=== PATIENT | male | born 1955 | race Caucasian/White ===

== ENCOUNTER 2020-02-28 12:32 | Inpatient (IN) | payer MEDICARE ==
[2020-02-28] MEDS ORDERED: SODIUM CHLORIDE 0.9% 500 ML 500 ML IV STA (12:43)
[2020-02-28] MEDS ORDERED: DILTIAZEM DRIP BOLUS FROM BAG 1 MG SOLN IV ONE ×2 (13:02→14:01)
--- NOTE | 2020-02-28 13:12 | ED ---
General Adult HPI - General Chief complaint: Arrhythmia/Palpitations Stated complaint: Dizziness Time Seen by Provider: 02/28/20 12:42 Source: patient, RN notes reviewed, old records reviewed Mode of arrival: ambulatory Limitations: no limitations - History of Present Illness Initial comments: 65-year-old male presenting for evaluation of lightheadedness, palpitations. Patient is quite healthy, no history of hypertension, no history diabetes, he has had an outpatient calcium study performed and indicated that he had mild coronary artery disease by computed tomography scan. He states that this morning he woke with his symptoms, he's had symptoms for approximately 5 hours at the time my evaluation. Denies chest pain or dyspnea. No previous history of arrhythmia. Found to be in atrial fibrillation at the time of presentation. No lower extremity swelling. - Related Data Home Medications Medication Instructions Recorded Confirmed Aspirin EC [Ecotrin Low Dose] 162 mg PO DAILY 02/28/20 02/28/20 Esomeprazole Magnesium [NexIUM 20 mg PO DAILY 02/28/20 02/28/20 24Hr] Allergies Allergy/AdvReac Type Severity Reaction Status Date / Time Pork/Porcine Containing AdvReac MIGRAINES Verified 02/28/20 14:05 Products [Pork] Review of Systems ROS Statement: Those systems with pertinent positive or pertinent negative responses have been documented in the HPI. ROS Other: All systems not noted in ROS Statement are negative. Past Medical History Past Medical History: GERD/Reflux History of Any Multi-Drug Resistant Organisms: None Reported Past Surgical History: Orthopedic Surgery Additional Past Surgical History / Comment(s): eye surgery, Past Psychological History: No Psychological Hx Reported Smoking Status: Never smoker Past Alcohol Use History: Daily Past Drug Use History: None Reported General Exam Limitations: no limitations General appearance: alert, in no apparent distress Head exam: Present: atraumatic, normocephalic Eye exam: Present: normal appearance, PERRL ENT exam: Present: normal exam Neck exam: Present: normal inspection. Absent: tenderness, meningismus Respiratory exam: Present: normal lung sounds bilaterally. Absent: respiratory distress, wheezes, rales Cardiovascular Exam: Present: tachycardia, irregular rhythm GI/Abdominal exam: Present: soft. Absent: distended, tenderness, guarding, rebound Extremities exam: Present: normal inspection, normal capillary refill. Absent: pedal edema Neurological exam: Present: alert, oriented X3, CN II-XII intact. Absent: motor sensory deficit Psychiatric exam: Present: normal affect, normal mood Skin exam: Present: warm, dry, intact. Absent: cyanosis, diaphoretic Course Vital Signs 02/28/20 02/28/20 02/28/20 12:34 13:37 14:02 Temperature 97.9 F Pulse Rate 58 L 160 H Pulse Rate [ 151 H Retail Account Representative ] Respiratory 18 18 Rate Blood Pressure 92/53 106/82 O2 Sat by Pulse 95 99 Oximetry EKG Findings - EKG Comments: EKG Findings:: EKG: Atrial fibrillation, RVR, rate of 156, QRS duration 74, QTC 457, no ST segment elevation. Medical Decision Making - Medical Decision Making 65-year-old male presenting with dizziness, palpitations. Patient found to be in A. fib with RVR, no prior history. Patient's chads score is 1. Patient started on Cardizem with improvement rate control. Laboratory testing reveals normal CBC, normal electrolytes, his troponin is elevated 0.58. He is initiated on heparin. His chest x-ray shows a solitary nodule with no other acute findings, no pneumonia, no pneumothorax. Patient will be admitted to internal medicine with cardiology on consult. He will be continued on heparin and Cardizem. Echo has been ordered. Diagnosis: New-onset atrial fibrillation with RVR, non-ST segment elevated SD. - Lab Data Result diagrams: 02/28/20 13:16 02/28/20 13:16 Lab Results 02/28/20 02/28/20 02/28/20 Range/Units 13:16 13:16 13:16 WBC 7.5 (3.8-10.6) k/uL RBC 4.73 (4.30-5.90) m/uL Hgb 15.5 (13.0-17.5) gm/dL Hct 45.3 (39.0-53.0) % MCV 95.8 (80.0-100.0) fL MCH 32.9 (25.0-35.0) pg MCHC 34.3 (31.0-37.0) g/dL RDW 13.6 (11.5-15.5) % Plt Count 287 (150-450) k/uL Neutrophils % 70 % Lymphocytes % 21 % Monocytes % 6 % Eosinophils % 2 % Basophils % 0 % Neutrophils # 5.2 (1.3-7.7) k/uL Lymphocytes # 1.5 (1.0-4.8) k/uL Monocytes # 0.4 (0-1.0) k/uL Eosinophils # 0.1 (0-0.7) k/uL Basophils # 0.0 (0-0.2) k/uL PT 10.5 (9.0-12.0) sec INR 1.0 (<1.2) APTT 23.7 (22.0-30.0) sec Sodium 138 (137-145) mmol/L Potassium 4.9 (3.5-5.1) mmol/L Chloride 106 (98-107) mmol/L Carbon Dioxide 23 (22-30) mmol/L Anion Gap 9 mmol/L BUN 18 (9-20) mg/dL Creatinine 0.95 (0.66-1.25) mg/dL Est GFR (CKD-EPI)AfAm >90 (>60 ml/min/1.73 sqM) Est GFR (CKD-EPI)NonAf 84 (>60 ml/min/1.73 sqM) Glucose 162 H (74-99) mg/dL Calcium 9.5 (8.4-10.2) mg/dL Magnesium 1.7 (1.6-2.3) mg/dL Total Bilirubin 2.4 H (0.2-1.3) mg/dL AST 25 (17-59) U/L ALT 20 (4-49) U/L Alkaline Phosphatase 95 (38-126) U/L Troponin I (0.000-0.034) ng/mL Total Protein 6.6 (6.3-8.2) g/dL Albumin 4.1 (3.5-5.0) g/dL TSH 2.020 (0.465-4.680) mIU/L Urine Color Urine Appearance (Clear) Urine pH (5.0-8.0) Ur Specific [place] (1.001-1.035) Urine Protein (Negative) Urine Glucose (UA) (Negative) Urine Ketones (Negative) Urine Blood (Negative) Urine Nitrite (Negative) Urine Bilirubin (Negative) Urine Urobilinogen (<2.0) mg/dL Ur Leukocyte Esterase (Negative) Urine RBC (0-5) /hpf Urine WBC (0-5) /hpf Ur Squamous Epith Cells (0-4) /hpf Hyaline Casts (0-2) /lpf Urine Mucus (None) /hpf Urine Opiates Screen (NotDetected) Ur Oxycodone Screen (NotDetected) Urine Methadone Screen (NotDetected) Ur Propoxyphene Screen (NotDetected) Ur Barbiturates Screen (NotDetected) U Tricyclic Antidepress (NotDetected) Ur Phencyclidine Scrn (NotDetected) Ur Amphetamines Screen (NotDetected) U Methamphetamines Scrn (NotDetected) U Benzodiazepines Scrn (NotDetected) Urine Cocaine Screen (NotDetected) U Marijuana (THC) Screen (NotDetected) 02/28/20 02/28/20 Range/Units 13:16 13:59 WBC (3.8-10.6) k/uL RBC (4.30-5.90) m/uL Hgb (13.0-17.5) gm/dL Hct (39.0-53.0) % MCV (80.0-100.0) fL MCH (25.0-35.0) pg MCHC (31.0-37.0) g/dL RDW (11.5-15.5) % Plt Count (150-450) k/uL Neutrophils % % Lymphocytes % % Monocytes % % Eosinophils % % Basophils % % Neutrophils # (1.3-7.7) k/uL Lymphocytes # (1.0-4.8) k/uL Monocytes # (0-1.0) k/uL Eosinophils # (0-0.7) k/uL Basophils # (0-0.2) k/uL PT (9.0-12.0) sec INR (<1.2) APTT (22.0-30.0) sec Sodium (137-145) mmol/L Potassium (3.5-5.1) mmol/L Chloride (98-107) mmol/L Carbon Dioxide (22-30) mmol/L Anion Gap mmol/L BUN (9-20) mg/dL Creatinine (0.66-1.25) mg/dL Est GFR (CKD-EPI)AfAm (>60 ml/min/1.73 sqM) Est GFR (CKD-EPI)NonAf (>60 ml/min/1.73 sqM) Glucose (74-99) mg/dL Calcium (8.4-10.2) mg/dL Magnesium (1.6-2.3) mg/dL Total Bilirubin (0.2-1.3) mg/dL AST (17-59) U/L ALT (4-49) U/L Alkaline Phosphatase (38-126) U/L Troponin I 0.051 H* (0.000-0.034) ng/mL Total Protein (6.3-8.2) g/dL Albumin (3.5-5.0) g/dL TSH (0.465-4.680) mIU/L Urine Color Yellow Urine Appearance Clear (Clear) Urine pH 7.0 (5.0-8.0) Ur Specific [place] 1.024 (1.001-1.035) Urine Protein Trace H (Negative) Urine Glucose (UA) Negative (Negative) Urine Ketones Negative (Negative) Urine Blood Negative (Negative) Urine Nitrite Negative (Negative) Urine Bilirubin Negative (Negative) Urine Urobilinogen 3.0 (<2.0) mg/dL Ur Leukocyte Esterase Trace H (Negative) Urine RBC 1 (0-5) /hpf Urine WBC <1 (0-5) /hpf Ur Squamous Epith Cells <1 (0-4) /hpf Hyaline Casts 38 H (0-2) /lpf Urine Mucus Rare H (None) /hpf Urine Opiates Screen Not Detected (NotDetected) Ur Oxycodone Screen Not Detected (NotDetected) Urine Methadone Screen Not Detected (NotDetected) Ur Propoxyphene Screen Not Detected (NotDetected) Ur Barbiturates Screen Not Detected (NotDetected) U Tricyclic Antidepress Not Detected (NotDetected) Ur Phencyclidine Scrn Not Detected (NotDetected) Ur Amphetamines Screen Not Detected (NotDetected) U Methamphetamines Scrn Not Detected (NotDetected) U Benzodiazepines Scrn Not Detected (NotDetected) Urine Cocaine Screen Not Detected (NotDetected) U Marijuana (THC) Screen Not Detected (NotDetected) Critical Care Time Critical Care Time: Yes Total Critical Care Time: 35 Disposition Clinical Impression: Atrial fibrillation, NSTEMI (non-ST elevated myocardial infarction) Disposition: ADMITTED IP TO THIS HOSP Condition: Stable Is patient prescribed a controlled substance at d/c from ED?: No Referrals: Augie Martinez MD [Primary Care Provider] - 1-2 days Decision to Admit Reason: Admit from EC Decision Date: 02/28/20 Decision Time: 14:59
[2020-02-28] MEDS: DILTIAZEM 125 MG in SODIUM CHLORIDE 0.9% 100 ML IV SCH ×2 (13:33→22:45)
[2020-02-28] MEDS: ASPIRIN 325 MG TAB PO STA ×2 (13:33→13:36)
[2020-02-28 13:42] LABS: Basophils % (A) 0 %; Eosinophils # (A) 0.1 k/uL (0-0.7); Eosinophils % (A) 2 %; HCT 45.3 % (39.0-53.0); HGB 15.5 gm/dL (13.0-17.5); Lymphocytes # (A) 1.5 k/uL (1.0-4.8); Lymphocytes % (A) 21 %; MCH 32.9 pg (25.0-35.0); MCHC 34.3 g/dL (31.0-37.0); MCV 95.8 fL (80.0-100.0); Mean Platelet Volume 8.5; Monocytes # (A) 0.4 k/uL (0-1.0); Monocytes % (A) 6 %; Neutrophils # (A) 5.2 k/uL (1.3-7.7); Neutrophils % (A) 70 %; Platelet Count 287 k/uL (150-450); RBC 4.73 m/uL (4.30-5.90); RDW 13.6 % (11.5-15.5); WBC 7.5 k/uL (3.8-10.6)
[2020-02-28 13:47] LABS: ALT 20 U/L (4-49); AST 25 U/L (17-59); African American GFR (CKD) >90 (>60 ml/min/1.73 sqM); Albumin 4.1 g/dL (3.5-5.0); Alkaline Phosphatase 95 U/L (38-126); Anion Gap 9 mmol/L; Blood Urea Nitrogen 18 mg/dL (9-20); Calcium 9.5 mg/dL (8.4-10.2); Carbon Dioxide 23 mmol/L (22-30); Chloride 106 mmol/L (98-107); Glucose 162 mg/dL (74-99); Magnesium 1.7 mg/dL (1.6-2.3); Non-African American GFR(CKD) 84 (>60 ml/min/1.73 sqM); Potassium 4.9 mmol/L (3.5-5.1); Sodium 138 mmol/L (137-145); Total Bilirubin 2.4 mg/dL (0.2-1.3); Total Protein 6.6 g/dL (6.3-8.2)
[2020-02-28 13:48] LABS: Partial Thromboplastin Time 23.7 sec (22.0-30.0); Prothrombin Time 10.5 sec (9.0-12.0)
[2020-02-28] MEDS ORDERED: HEPARIN SODIUM,PORCINE 5,000 UNIT/ML 1 ML VIAL IV ONE (14:05)
[2020-02-28] MEDS ORDERED: HEPARIN SODIUM,PORCINE 5,000 UNIT/ML 1 ML VIAL IV PRN (14:05)
--- NOTE | 2020-02-28 14:09 | XR ---
EXAMINATION TYPE: XR chest 2V DATE OF EXAM: 02/28/2020 HISTORY: dysrhythmia. REFERENCE: NONE. FINDINGS: There is a small peripheral nodule within the right lower lung. Lungs are otherwise clear. Pleural space are clear. The heart is not enlarged. IMPRESSION: SOLITARY PULMONARY NODULE IN THE RIGHT LOWER LUNG. A NONEMERGENT CT SCAN OF THE CHEST MAY BE WORTHWHI LE.
[2020-02-28] MEDS ORDERED: HEPARIN SOD,PORK IN 0.45% NACL 25,000 UNIT in 0.45% NACL 1 250ML.BAG IV SCH (14:15)
[2020-02-28 14:30] LABS: Appearance,Urine Clear (Clear); Bilirubin,Urine Negative (Negative); Blood,Urine Negative (Negative); Color,Urine Yellow; Glucose,Urine (UA) Negative (Negative); Hyaline Casts,Urine 38 /lpf (0-2); Ketones,Urine Negative (Negative); Leukocyte Esterase,Urine Trace (Negative); Mucus,Urine Rare /hpf; Nitrite,Urine Negative (Negative); Protein,Urine Trace (Negative); RBC,Urine 1 /hpf (0-5); Specific Gravity,Urine 1.024 (1.001-1.035); Squamous Epithelial Cell,Urine <1 /hpf (0-4); WBC,Urine <1 /hpf (0-5)
[2020-02-28 14:43] LABS: Amphetamine Screen,Urine Not Detected (NotDetected); Barbiturate Screen,Urine Not Detected (NotDetected); Benzodiazepines Screen,Urine Not Detected (NotDetected); Cocaine Screen,Urine Not Detected (NotDetected); Methadone Screen, Urine Not Detected (NotDetected); Opiate Screen,Urine Not Detected (NotDetected); Oxycodone Screen, Urine Not Detected (NotDetected); Phencyclidine Screen,Urine Not Detected (NotDetected); Tricyclic Antidepressant,Urine Not Detected (NotDetected); Urn Cannabinoid Scrn Not Detected (NotDetected)
[2020-02-28] MEDS ORDERED: NALOXONE 0.4 MG/ML 1 ML VIAL IV PRN (14:53)
[2020-02-28] MEDS ORDERED: ACETAMINOPHEN TAB 325 MG TAB PO PRN (14:53)
[2020-02-28] MEDS: SODIUM CHLORIDE 0.9% 1,000 ML IV SCH (19:08)
[2020-02-29 03:57] LABS: Basophils % (A) 0 %; Eosinophils # (A) 0.3 k/uL (0-0.7); Eosinophils % (A) 4 %; HCT 43.3 % (39.0-53.0); HGB 14.4 gm/dL (13.0-17.5); Lymphocytes % (A) 28 %; MCH 32.3 pg (25.0-35.0); MCHC 33.3 g/dL (31.0-37.0); MCV 96.9 fL (80.0-100.0); Mean Platelet Volume 8.5; Monocytes # (A) 0.4 k/uL (0-1.0); Monocytes % (A) 6 %; Neutrophils # (A) 4.5 k/uL (1.3-7.7); Neutrophils % (A) 62 %; Platelet Count 183 k/uL (150-450); RBC 4.46 m/uL (4.30-5.90); RDW 13.6 % (11.5-15.5); WBC 7.2 k/uL (3.8-10.6)
[2020-02-29] MEDS: DILTIAZEM 125 MG in SODIUM CHLORIDE 0.9% 100 ML IV SCH (08:41)
[2020-02-29] MEDS: APIXABAN 5 MG TAB PO SCH ×2 (08:41→21:19)
[2020-02-29] MEDS: METOPROLOL TARTRATE 50 MG TAB PO SCH ×2 (08:41→20:50)
--- NOTE | 2020-02-29 09:05 | CONS ---
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 He apparently has no significant past medical history in terms of hypertension, diabetes, myocardial infarction or CVA. He is a reasonably active person. He came in complaining of palpitations and lightheadedness and he was found to be in atrial fibrillation and this was going on for nearly 5 hours I believe and the heart rate was in the 150-160 range. He takes Nexium and aspirin 162 mg daily. Apparently, about 10 years ago, he had a CT angio of the coronaries which revealed mild obstructive CAD in a branch of LAD and his calcium score at that time was 25. A recent study in the last couple of weeks with a calcium score was about 111. He is reasonably active person and does not have any chest pain, shortness of breath or palpitation with his day-to-day activity. ALLERGIES: No known drug allergies. MEDICATIONS: Nexium 20 mg daily, aspirin 162 mg daily. PAST HISTORY: Remarkable for gastroesophageal reflux disease. He has had some surgery for his knee, which was an arthroscopic surgery. SOCIAL HISTORY: Patient is not a smoker, but does consume alcohol on a regular basis. Does not drink excessive caffeine. PHYSICAL EXAMINATION: Blood pressure is 110/70, pulse rate is about 100-110, irregularly irregular. HEENT: Unremarkable. Fundus was not examined by me. Neck is supple. No JVD. I do not hear a carotid bruit. There is no thyromegaly. Heart exam reveals S1, S2 heard normally with irregular rate and rhythm. No significant murmurs. Lungs are clear. Abdomen is soft, nontender. Lower extremities reveal normal pulses. No edema. Central nervous system is normal. EKG on arrival revealed atrial fib, rapid ventricular rate, nonspecific ST abnormality. IMPRESSION: 1. Paroxysmal symptomatic atrial fibrillation. However, on questioning patient indicates to me that he has had palpitations on and off for years, but this was the most sustained 1 lasting over 5 hours. 2. History of abnormal calcium score of about 111. RECOMMENDATIONS: I am recommending that we discontinue his heparin drip, start him on Eliquis 5 mg b.i.d., Lopressor 50 mg b.i.d. and discontinue the Cardizem drip a couple of hours after the Lopressor. We will achieve rate control and anticoagulation. I will also discontinue his aspirin. We will review the echo apparently which was performed yesterday evening. For now, we will pursue rate control and anticoagulation and then consider other intervention based on his progress. Discussed my thoughts in detail with the patient. Thank you very much for the consult. DALLIN / CARLTON: [id number] /
--- NOTE | 2020-02-29 10:07 | ECHOF ---
Referral Reason:NSTEMI MEASUREMENTS -------- HEIGHT: 185.4 cm WEIGHT: 95.3 kg BP: RVIDd: 3.1 cm (< 3.3) IVSd: 1.2 cm (0.6 - 1.1) LVIDd: 3.9 cm (3.9 - 5.3) LVPWd: 1.3 cm (0.6 - 1.1) IVSs: 1.9 cm LVIDs: 2.5 cm LVPWs: 1.7 cm LA Diam: 3.6 cm (2.7 - 3.8) Ao Diam: 3.8 cm (2.0 - 3.7) AV Cusp: 2.8 cm (1.5 - 2.6) MV EXCURSION: 20.174 mm (> 18.000) MV EF SLOPE: 282 mm/s (70 - 150) EPSS: 0.2 cm RAP: 5.00 mmHg RVSP: 18.87 mmHg TAPSE: 19.52 mm FINDINGS -------- Atrial fibrillation. This was a technically good study. The left ventricular size is normal. There is mild concentric left ventricular hypertrophy. Overa ll left ventricular systolic function is normal with, an EF between 55 - 60 %. Tachycardic. The right ventricle is normal in size. The left atrial size is normal. The right atrium is normal in size. Interatrial and interventricular septum intact. The aortic valve is trileaflet and appears structurally normal. Trace to mild aortic regurgitation. Mild mitral regurgitation is present. Mild tricuspid regurgitation present. Right ventricular systolic pressure is normal at < 35 mmHg. There is no pulmonic regurgitation present. The aortic root is dilated measuring 3.8cm. Normal inferior vena cava with normal inspiratory collapse consistent with estimated right atrial pre ssure of 5 mmHg. There is no pericardial effusion. CONCLUSIONS -------- 1. Atrial fibrillation. 2. This was a technically good study. 3. The left ventricular size is normal. 4. There is mild concentric left ventricular hypertrophy. 5. The right ventricle is normal in size. 6. The left atrial size is normal. 7. The right atrium is normal in size. 8. Interatrial and interventricular septum intact. 9. The aortic valve is trileaflet and appears structurally normal. 10. Trace to mild aortic regurgitation. 11. Mild mitral regurgitation is present. 12. Mild tricuspid regurgitation present. 13. Right ventricular systolic pressure is normal at < 35 mmHg. 14. There is no pulmonic regurgitation present. 15. The aortic root is dilated measuring 3.8cm. 16. Normal inferior vena cava with normal inspiratory collapse consistent with estimated right atrial pressure of 5 mmHg. 17. There is no pericardial effusion. FEATHER SHAPER: Daisy Ortiz RDCS
--- NOTE | 2020-02-29 10:32 | P.HPIM ---
History of Present Illness H&P Date: 02/29/20 This is a 65-year-old male patient of Dr. Martinez with past medical history of gastroesophageal reflux disease, DVT in 2003 following knee surgery, PE in 2010, UPJ obstruction status post repair on the right side with kidney function of 20%. Patient states that he had onset of palpitations along with lightheadedness. He states he has had episodes like this in the past but they would only last for a few minutes but this time it would not go away. Patient states he was at rest at the time of onset. No chest pain developed. At the time. He does have gastroesophageal reflux disease and taking Nexium. He denies any lower extremity edema. He drinks decaf coffee. Presented to [facility] emergency center for evaluation. CBC was normal, electrolytes and renal function normal, blood sugar 162, total bilirubin 2.4, liver function tests otherwise normal. TSH 2.02. Troponins 0.051, 0.080, 0.089. Urine drug screen was negative. Urinalysis clear with protein trace, leukoesterase trace, hyaline casts 38. EKG was A. fib at 156 bpm. Chest x-ray solitary pulmonary nodule in the right lower lobe with recommendations for follow-up outpatient. Patient was started on Cardizem drip and heparin drip and admitted to the cardiac stepdown unit. Patient converted this morning to normal sinus rhythm. Patient has been seen by cardiology and transition to eliquis and Lopressor. Review of Systems Constitutional: Denies anorexia, Denies chills, Denies fatigue, Denies fever, Denies lethargy, Denies malaise, Denies poor appetite, Denies weakness Eyes: denies blurred vision, denies pain Ears, nose, mouth and throat: Denies dysphagia, Denies headache, Denies nasal congestion, Denies nasal discharge, Denies sore throat, Denies vertigo Cardiovascular: Reports lightheadedness, Reports palpitations, Denies chest pain, Denies decreased exercise tolerance, Denies dyspnea on exertion, Denies edema, Denies leg edema, Denies shortness of breath, Denies syncope Respiratory: Denies congestion, Denies cough, Denies cough with sputum, Denies dyspnea, Denies excessive sputum, Denies hemoptysis, Denies home oxygen, Denies respiratory infections, Denies sleep apnea, Denies wheezing Gastrointestinal: Denies abdominal pain, Denies BRBPR, Denies diarrhea, Denies loss of appetite, Denies melena, Denies nausea, Denies vomiting Genitourinary: Denies dysuria, Denies urinary frequency, Denies urinary retention Musculoskeletal: Denies frequent falls, Denies gait dysfunction, Denies muscle weakness, Denies myalgias Integumentary: Denies pruritus, Denies rash, Denies wounds Neurological: Denies change in mentation, Denies change in speech, Denies gait dysfunction, Denies numbness, Denies seizures, Denies weakness Psychiatric: Denies anxiety, Denies depression Endocrine: Denies fatigue, Denies weight change Past Medical History Past Medical History: Deep Vein Thrombosis (DVT), GERD/Reflux, Pulmonary Embolus (PE) Additional Past Medical History / Comment(s): PE-2009. DVT-2003 post Knee rolando jamari. Congenital Kidney impairment, right UPJ obstruction repair was unsuccessful in 2017 History of Any Multi-Drug Resistant Organisms: None Reported Past Surgical History: Orthopedic Surgery, Tonsillectomy Additional Past Surgical History / Comment(s): Vitrectomy Right eye November Torn retina. Right Knee medial collateral 1989. Right knee [place] - 2003 Past Anesthesia/Blood Transfusion Reactions: No Reported Reaction Past Psychological History: No Psychological Hx Reported Smoking Status: Never smoker Past Alcohol Use History: Daily Past Drug Use History: None Reported - Past Family History Father Family Medical History: Cancer Additional Family Medical History / Comment(s): Father from lung cancer with history of smoking. Mother Additional Family Medical History / Comment(s): Mother is alive at 87 with no major medical problems. Mother is drinking a 6 pack per day. Brother(s) Additional Family Medical History / Comment(s): Patient has 1 brother and he has history of DVT. Sister(s) Additional Family Medical History / Comment(s): Patient has one sister that from breast cancer with history of alcohol abuse. Daughter(s) Additional Family Medical History / Comment(s): Patient has 3 children. One son with no major medical problems. 2 daughters and one has history of thyroid cyst. Medications and Allergies Home Medications Medication Instructions Recorded Confirmed Type Aspirin EC [Ecotrin Low Dose] 162 mg PO DAILY 02/28/20 02/28/20 History Esomeprazole Magnesium [NexIUM 20 mg PO DAILY 02/28/20 02/28/20 History 24Hr] Allergies Allergy/AdvReac Type Severity Reaction Status Date / Time Pork/Porcine Containing AdvReac MIGRAINES Verified 02/28/20 14:05 Products [Pork] Physical Exam Vitals: Vital Signs Temp Pulse Pulse Resp BP BP Pulse Ox 02/29/20 04:00 98.5 F 130 H 18 105/68 94 L 02/28/20 23:46 98.5 F 103 H 16 107/70 96 02/28/20 20:00 98 F 114 H 18 114/72 98 02/28/20 16:00 98 F 129 H 16 106/73 99 02/28/20 15:00 130 H 18 110/68 100 02/28/20 14:02 160 H 18 106/82 99 02/28/20 14:00 135 H 17 98 02/28/20 13:37 151 H 02/28/20 12:34 97.9 F 58 L 18 92/53 95 Intake and Output 02/28/20 02/29/20 02/29/20 22:59 06:59 14:59 Intake Total 146.833 540 Output Total 900 Balance 146.833 -360 Intake: Intake, IV Titration 146.833 Amount Diltiazem 125 mg In 87 Sodium Chloride 0.9% 100 ml @ 5 MG/HR 5 mls/hr IV .Q24H ANDRA Rx#:[id number] Heparin Sod,Pork in 0.45% 59.833 NaCl 25,000 unit In 0.45 % NaCl 1 250ml.bag @ 10. 498 UNITS/KG/HR 10 mls/hr IV .Q24H ANDRA Rx#: [id number] Oral 540 Output: Urine 900 Other: Voiding Method Toilet # Voids 1 1 Weight 95.254 kg 93.5 kg Gen: This is a 65-year-old male. Patient is resting in bed and appears to be comfortable and in no acute distress. HEENT: Head is atraumatic, normocephalic. Pupils equal, round. Sclerae is anicteric. NECK: Supple. No JVD. No lymphadenopathy. No thyromegaly. LUNGS: Clear to auscultation. No wheezes or rhonchi. No intercostal retractions. HEART: Regular rate and rhythm. No murmur. ABDOMEN: Soft. Bowel sounds are present. No masses. No tenderness. EXTREMITIES: No pedal edema. No calf tenderness. Dorsalis pedis +2 bilaterally. NEUROLOGICAL: Patient is awake, alert and oriented x3. Cranial nerves 2 through 12 are grossly intact. Results CBC & Chem 7: 02/29/20 03:40 02/28/20 13:16 Labs: Abnormal Lab Results - Last 24 Hours (Table) 02/28/20 02/28/20 02/28/20 Range/Units 13:16 13:16 13:59 APTT (22.0-30.0) sec Glucose 162 H (74-99) mg/dL Total Bilirubin 2.4 H (0.2-1.3) mg/dL Troponin I 0.051 H* (0.000-0.034) ng/mL Urine Protein Trace H (Negative) Ur Leukocyte Esterase Trace H (Negative) Hyaline Casts 38 H (0-2) /lpf Urine Mucus Rare H (None) /hpf 02/28/20 02/28/20 02/29/20 Range/Units 20:15 20:15 00:55 APTT 32.9 H (22.0-30.0) sec Glucose (74-99) mg/dL Total Bilirubin (0.2-1.3) mg/dL Troponin I 0.080 H* 0.089 H* (0.000-0.034) ng/mL Urine Protein (Negative) Ur Leukocyte Esterase (Negative) Hyaline Casts (0-2) /lpf Urine Mucus (None) /hpf 02/29/20 Range/Units 03:40 APTT 40.9 H (22.0-30.0) sec Glucose (74-99) mg/dL Total Bilirubin (0.2-1.3) mg/dL Troponin I (0.000-0.034) ng/mL Urine Protein (Negative) Ur Leukocyte Esterase (Negative) Hyaline Casts (0-2) /lpf Urine Mucus (None) /hpf Thrombosis Risk Factor Assmnt - Choose All That Apply Each Factor Represents 1 point: Obesity (BMI >25) Each Risk Factor Represents 2 Points: Age 61-74 years Thrombosis Risk Factor Assessment Total Risk Factor Score: 3 Thrombosis Risk Factor Assessment Level: Moderate Risk Assessment and Plan Plan: 1. New onset atrial fibrillation, paroxysmal atrial fibrillation. Cardiology consult appreciated. Cardizem drip and heparin drip have been transitioned to Lopressor 50 g twice daily and eliquis 5 mg twice daily. Echocardiogram has been done and report is pending. 2. Solitary pulmonary nodule in the right lower lobe. Follow-up CAT scan as an outpatient. 3. Elevated troponin most likely secondary to atrial fibrillation. Cardiology consult. 4. GERD. 5. Alcohol abuse, stable. 6. DVT prophylaxis. Eliquis. Patient will be admitted to the hospital for a minimum of 2 night stay. Discharge plan: Home on Sunday Impression and plan of care have been directed as dictated by the signing phys iciever. Ale Pinto nurse practitioner acting as scribe for signing physician.
[2020-02-29] MEDS: SODIUM CHLORIDE 0.9% 1,000 ML IV SCH (19:50)
[2020-03-01 04:30] VITALS: RESP 18
[2020-03-01] MEDS ORDERED: METOPROLOL TARTRATE 25 MG TAB PO SCH (09:00)
--- NOTE | 2020-03-01 09:26 | PN ---
PROGRESS NOTE A gentleman with a paroxysmal atrial fibrillation and mild troponin elevation related to atrial fibrillation. He is doing well. Echo revealed preserved systolic function, but the rate was faster when echo was done. He is in sinus rhythm. He is on beta radha and apixaban. Beta radha was held. I am recommending a stress echo. If this is normal, he can be discharged. He will be discharged on apixaban 5 mg b.i.d., metoprolol tartrate 25 mg b.i.d. and I will see him in 2-3 weeks. If stress echo is abnormal, I will again discuss with him the different options. Vitals are stable, no JVD. S1, S2 heard normally. Lungs are clear. Abdomen is soft. Lower extremity reveals normal pulses. No edema. Central nervous system is normal. MMODL / IJN: [id number] /
--- NOTE | 2020-03-01 10:28 | ECHOS ---
STRESS ECHOCARDIOGRAM INDICATIONS: Atrial fibrillation. MEDICATIONS: Nexium. BASELINE HEART RATE: 85 BASELINE BLOOD PRESSURE: 125/59 MAXIMUM HEART RATE: 169 MAXIMUM BLOOD PRESSURE: 207/91 85% MPHR: 131 100% MPHR: 154 METS: 12.1 MAXIMUM STAGE REACHED: 4 TOTAL EXERCISE TIME: 12:00 CLINICAL INFORMATION: Baseline rhythm is a sinus mechanism, rate of 85, normal axis and intervals. Normal echocardiogram. Baseline blood pressure 125/59 mmHg. Patient was status post protocol for 12 minutes reaching peak rate 169 beats per minute which is equal to 100% maximum predicted heart rate. Peak blood pressure 207/91 mmHg. Test was terminated due to fatigue. There was no chest pain. Electrocardiograph monitoring revealed rare PVCs, there was no evidence of diagnostic ischemic ST deviation. FINDINGS: Baseline echocardiogram revealed normal wall motion. At peak exercise, there was normal wall motion and augmentation with no hypokinesis or dyskinesis. CONCLUSION: 1. Good exercise tolerance with normal echocardiograph response to exercise and rare premature ventricular contractions. 2. Normal stress echocardiogram with no evidence of stress-induced ischemia. MMODL / IJN: [id number] /
[2020-03-01 11:13] VITALS: BP 123/80; PULSE 79; TEMP 98
[2020-03-01] MEDS: SODIUM CHLORIDE 0.9% 1,000 ML IV SCH (11:44)
[2020-03-01] MEDS: APIXABAN 5 MG TAB PO SCH (11:44)
--- NOTE | 2020-03-01 12:38 | P.DS ---
Providers Date of admission: 02/28/20 14:55 Expected date of discharge: 03/01/20 Attending physician: Emile Turk Consults: 02/28/20 14:54 Consult Physician Routine Consulting Provider: Alexis Armstrong Consult Reason/Comments: A-fib, NSTEMI Do you want consulting provider notified?: Yes Primary care physician: Augie Martinez [facility] Course: This is a 65-year-old male patient of Dr. Martinez with past medical history of gastroesophageal reflux disease, DVT in 2003 following knee surgery, PE in 2009, UPJ obstruction status post repair on the right side with kidney function of 20%. Patient states that he had onset of palpitations along with lightheadedness. He states he has had episodes like this in the past but they would only last for a few minutes but this time it would not go away. Patient states he was at rest at the time of onset. No chest pain developed. At the time. He does have gastroesophageal reflux disease and taking Nexium. He denies any lower extremity edema. He drinks decaf coffee. Presented to [facility] emergency center for evaluation. CBC was normal, electrolytes and renal function normal, blood sugar 162, total bilirubin 2.4, liver function tests otherwise normal. TSH 2.02. Troponins 0.051, 0.080, 0.089. Urine drug screen was negative. Urinalysis clear with protein trace, leukoesterase trace, hyaline casts 38. EKG was A. fib at 156 bpm. Chest x-ray solitary pulmonary nodule in the right lower lobe with recommendations for follow-up outpatient. Patient was started on Cardizem drip and heparin drip and admitted to the cardiac stepdown unit. Patient converted this morning to normal sinus rhythm. Patient has been seen by cardiology and transition to eliquis and Lopressor. 03/01: Patient is currently in a sinus rhythm heart rate in the 80s, afebrile, blood pressure 124/72, pulse ox 90% on room air. Echocardiogram reveals EF of 55-60%, trace to mild aortic regurgitation, mild mitral regurgitation, mild tricuspid regurgitation, aortic root dilated at 3.8 cm. Stress echocardiogram has been ordered and came back normal. Patient was cleared for discharge by cardiology. Recommendations to continue eliquis and metoprolol. Follow-up with Dr. Jennifer Barry in 2-3 weeks. Patient will be discharged home today in stable condition. Discharge diagnoses: 1. New onset atrial fibrillation, paroxysmal atrial fibrillation. 2. Solitary pulmonary nodule in the right lower lobe. Follow-up CAT scan as an outpatient. 3. Elevated troponin most likely secondary to atrial fibrillation. 4. GERD. 5. Alcohol abuse, stable. Discharge plan: Home Impression and plan of care have been directed as dictated by the signing physician. Ale Pinto nurse practitioner acting as scribe for signing physician. Patient Condition at Discharge: Good Plan - Discharge Summary New Discharge Prescriptions: New Apixaban [Eliquis] 5 mg PO BID #60 tab Metoprolol Tartrate [Lopressor] 25 mg PO BID #60 tab Continue Esomeprazole Magnesium [NexIUM 24Hr] 20 mg PO DAILY Discontinued Aspirin EC [Ecotrin Low Dose] 162 mg PO DAILY Discharge Medication List Esomeprazole Magnesium [NexIUM 24Hr] 20 mg PO DAILY 02/28/20 [History] Apixaban [Eliquis] 5 mg PO BID #60 tab 03/01/20 [Rx] Metoprolol Tartrate [Lopressor] 25 mg PO BID #60 tab 03/01/20 [Rx] Follow up Appointment(s)/Referral(s): Dorothea Barry MD [STAFF PHYSICIAN] - 03/23/20 4:00 pm (Sunday) Augie Martinez MD [Primary Care Provider] - 3 Days (Patient will call and follow up.) Patient Instructions/Handouts: A-fib (Atrial Fibrillation) (DC), Safe Use of Anticoagulants (DC), Stress Echocardiogram (DC) Discharge Disposition: HOME SELF-CARE
== END 2020-03-01 12:17 | disposition home or self-care (01) | DRG 310 ==
LOC: EC 12:32 → 3SCARD 14:55
PROVIDERS: ADMIT Internal Medicine; ATTEND Internal Medicine
DX: I48.0 Paroxysmal atrial fibrillation (principal); I25.10 Atherosclerotic heart disease of native coronary artery without angina pectoris; K21.9 Gastro-esophageal reflux disease without esophagitis; R79.89 Other specified abnormal findings of blood chemistry; R91.1 Solitary pulmonary nodule; N28.89 Other specified disorders of kidney and ureter; F10.10 Alcohol abuse, uncomplicated; E66.9 Obesity, unspecified; I08.3 Combined rheumatic disorders of mitral, aortic and tricuspid valves; Z68.26 Body mass index [BMI] 26.0-26.9, adult; Z79.82 Long term (current) use of aspirin; Z79.899 Other long term (current) drug therapy; Z91.018 Allergy to other foods; Z86.718 Personal history of other venous thrombosis and embolism; Z86.711 Personal history of pulmonary embolism; Z87.448 Personal history of other diseases of urinary system; Z98.890 Other specified postprocedural states; Z80.1 Family history of malignant neoplasm of trachea, bronchus and lung; Z83.2 Family history of diseases of the blood and blood-forming organs and certain disorders involving the immune mechanism; Z80.3 Family history of malignant neoplasm of breast; Z83.49 Family history of other endocrine, nutritional and metabolic diseases
CPT/HCPCS: 36415; 71046; 80053; 80306; 81001; 83735; 84443; 84484; 85025; 85610; 85730; 93005; 93306; 93351; 96365; 96366; 96368; 96376; 99291

== ENCOUNTER → 2024-10-22 | Outpatient (CLI) | payer MEDICARE ==
--- NOTE | 2024-10-22 11:24 | MR ---
EXAMINATION TYPE: MR Prostate wo/w con DATE OF EXAM: 10/22/2024 9:49 AM COMPARISON: None. CLINICAL INDICATION: Male, 69 years old with history of C61 Prostate cancer; Prostate cancer. TECHNIQUE: Multi-planar, multi-sequence imaging of the pelvis is performed prior to and following the uncomplicated administration of bolus intravenous gadolinium. IV Contrast: 9 mL Gadobutrol Interpretive Criteria: PI-RADS v2.1 SERUM PSA: 09-08-24 = 7.63 5-02-16 = 5.17 SURGICAL PATHOLOGY: 01/16/2024 positive biopsy left lateral base. FINDINGS: Prostatic dimensions: 4.7 x 4.2 x 3.4 cm. "Bullet" Volume:43.93 (PSA density=0.17 ng/mL/mL) CENTRAL GLAND (Central and Transition Zones/CZ+TZ): Multiple bilateral, heterogenous appearing hypertrophic stromal nodules, without suspicious lesion. M edian lobe hypertrophy with protrusion into the base of the bladder. (PI-RADS 2) PERIPHERAL ZONE (PZ): Bilateral linear, indistinct wedgelike areas of low ADC, and low T2 signal, No evidence of masslike a bnormality, or localized perfusional hypervascularity, to further suggest a focus of clinically signi ficant prostate cancer. (PI-RADS 2) SEMINAL VESICLES (SV): Symmetric and unremarkable. PERIPROSTATIC TISSUES: Unremarkable. LYMPH NODES: No enlarged pelvic lymph node. REMAINING PELVIS: Bladder wall is within normal limits given distention. No abnormal free or organized intrapelvic fluid collection. No pathologic bowel dilation or mural thickening. Colonic diverticula are present. No hernia visualized OSSEOUS STRUCTURES: No suspicious osseous abnormality. IMPRESSION: 1. No specific features for high-risk prostate cancer. Maximum PI-RADS score: 2. 2. Mild BPH, estimated gland volume 43.93 mL. 3. No suspicious osseous lesion. No lymphadenopathy. No evidence of prostate adenocarcinoma involving the periprostatic tissues. [facility], , 10/22/2024 11:22 AM
== END | disposition home or self-care (01) ==
LOC: RADMRIMAIN 08:34
PROVIDERS: ATTEND Surgery
DX: C61 Malignant neoplasm of prostate (principal); R35.1 Nocturia; N40.0 Benign prostatic hyperplasia without lower urinary tract symptoms
CPT/HCPCS: 72197; A9585